=== PATIENT | male | born 1970 | race Caucasian/White ===

== ENCOUNTER 2016-06-11 05:30 | Emergency (ER) | payer OTHER, BC ==
[2016-06-11] MEDS ORDERED: HYDROmorphone 2 MG/ML SDV ONE (05:44)
[2016-06-11] MEDS ORDERED: HYDROmorphone 2 MG/ML SDV IVPUSH ONE ×3 (05:46→07:55)
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
[2016-06-11] MEDS ORDERED: fentaNYL 100 MCG/2 ML SDV IV ONE (07:00)
[2016-06-11] MEDS ORDERED: Lactated Ringers 1,000 ML IV ONE (07:00)
[2016-06-11] MEDS ORDERED: Midazolam 1 MG/ML 2 ML SDV IV ONE (07:00)
[2016-06-11] MEDS: HYDROmorphone 2 MG/ML SDV IVPUSH ONE (08:23)
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
[2016-06-12] MEDS: HYDROmorphone 2 MG/ML SDV IVPUSH ONE (20:02)
== END 2016-06-11 08:45 ==
LOC: FB.ED 05:30
DX: I10 Essential (primary) hypertension (principal); S82.141A Displaced bicondylar fracture of right tibia, initial encounter for closed fracture; V59.88XA Occupant (driver) (passenger) of pick-up truck or van injured in other specified transport accidents, initial encounter; S00.81XA Abrasion of other part of head, initial encounter; S43.005A Unspecified dislocation of left shoulder joint, initial encounter; S43.004A Unspecified dislocation of right shoulder joint, initial encounter; M25.572 Pain in left ankle and joints of left foot; F10.120 Alcohol abuse with intoxication, uncomplicated; Z79.899 Other long term (current) drug therapy
CPT/HCPCS: 23650; 29505; 36415; 51702; 71010; 72040; 72100; 72170; 73020; 73560; 73600; 80048; 81001; 85025; 96361; 96374; 96375; 96376; 99291; 99292; G0390; G0480; J1170; J2250; J3010; J7120

== ENCOUNTER 2024-07-22 07:14 | Day surgery (SDC) | payer BC, OTHER ==
[2024-07-22] MEDS ORDERED: Lidocaine 2% 5 ML SDV IV ONE (07:15)
[2024-07-22] MEDS ORDERED: Propofol 200 MG/20 ML SDV IV ONE (07:15)
[2024-07-22] MEDS ORDERED: Sodium Chloride 0.9% 10 ML Syringe FLUSH PRN (07:15)
[2024-07-22] MEDS: Lactated Ringers 1,000 ML IV SCH (07:46)
[2024-07-22] MEDS: Simethicone Drops 40 MG/0.6 ML 30 ML Bottle PO ONE (08:40)
[2024-07-22 10:04] VITALS: BP 123/84; PULSE 69
== END 2024-07-22 09:58 | disposition home or self-care (01) ==
LOC: FB.SDS 07:14
PROVIDERS: ATTEND Surgery
DX: Z12.11 Encounter for screening for malignant neoplasm of colon (principal); K63.5 Polyp of colon; K62.1 Rectal polyp; K57.30 Diverticulosis of large intestine without perforation or abscess without bleeding; K42.0 Umbilical hernia with obstruction, without gangrene
CPT/HCPCS: 00811; 88305; A9270-GY; J2003; J2704; J7120